=== PATIENT | male | born 1955 | race Two or more races ===

== ENCOUNTER 2023-09-15 20:52 | Inpatient (IN) | payer OTHER, BC ==
[2023-09-15 22:42] LABS: VENOUS BASE EXCESS -1.5 mmol/L (-2-2); VENOUS O2 SATURATION 15.6 % (70-80); VENOUS PCO2 47.7 mmHg (38-52); VENOUS PH 7.332 (7.310-7.410)
[2023-09-15 22:50] LABS: BASO % 0.6 % (0-2.0); EOS % 0.1 % (0-4.5); HEMATOCRIT 38.5 % (35.4-49); HEMOGLOBIN 12.1 GM/dL (11.7-16.9); INR 1.62 (0.83-1.09); LYMPH % 8.5 % (8-40); MCH 29.6 pg (25.7-33.7); MCHC 31.5 g/dl (32.0-35.9); MEAN CELL VOLUME 93.8 fl (80-96); MEAN PLT VOLUME 11.1 fl (7.5-11.1); MONO % 4.5 % (3.8-10.2); NEUT % 86.3 % (42.8-82.8); PLATELET COUNT 63 10^3/uL (134-434); PROTHROMBIN TIME (PATIENT) 18.1 SEC (9.7-13.0); RDW 17.4 % (11.9-15.9); WHITE BLOOD COUNT 16.9 K/mm3 (4.0-10.0)
[2023-09-15 22:52] LABS: ACTIVATED PTT 36.5 SECONDS (25.2-36.5)
[2023-09-15 23:11] LABS: ALBUMIN 2.9 g/dl (3.4-5.0); ANION GAP 10 mmol/L (4-13); BLOOD UREA NITROGEN 21.8 mg/dL (7-18); CALCIUM 9.1 mg/dL (8.5-10.1); CHLORIDE 99 mmol/L (98-107); CO2 27 mmol/L (21-32); GLUCOSE,RANDOM 94 mg/dL (74-106); MAGNESIUM 1.9 mg/dL (1.8-2.4); POTASSIUM 2.9 mmol/L (3.5-5.1); SODIUM 136 mmol/L (136-145)
[2023-09-15 23:13] LABS: SGOT/AST 34 U/L (15-37); SGPT/ALT 24 U/L (13-61)
[2023-09-15 23:15] LABS: BILIRUBIN,TOTAL 1.8 mg/dL (0.2-1); TOT PROT 6.1 g/dl (6.4-8.2)
[2023-09-15 23:23] LABS: LACTIC ACID 2.1 mmol/L (0.4-2.0)
[2023-09-15] MEDS ORDERED: PIPERACILLIN/TAZOB 4.5 GM 4.5 GM/100 ML BAG IVPB ONE (23:30)
[2023-09-15] MEDS ORDERED: POTASSIUM CHLORIDE ORAL LIQUID 20 MEQ/15 ML ONE (23:31)
[2023-09-15 23:32] LABS: ANISOCYTOSIS 2+; MACROCYTOSIS 0; N-TERMINAL BNP 105172.7 pg/ml (5-125); OVALOCYTE 1+; TEAR DROP CELLS 1+
[2023-09-15 23:33] LABS: ALK PHOS 101 U/L (45-117)
[2023-09-15] MEDS: POTASSIUM CHLORIDE ORAL LIQUID 20 MEQ/15 ML PO ONE (23:35)
[2023-09-15] MEDS: PIPERACILLIN/TAZOB 4.5 GM 4.5 GM in DEXTROSE 5%-WATER 100 ML IVPB ONE (23:35)
[2023-09-16] MEDS ORDERED: VANCOMYCIN 1 GRAM (PRE-DOCKED) 1,000 MG/250 ML BAG IVPB ONE (00:13)
[2023-09-16] MEDS: VANCOMYCIN 1,000 MG in DEXTROSE 5%-WATER - 250 ML IVPB ONE (00:19)
[2023-09-16] MEDS ORDERED: ACETAMINOPHEN INJECTION 100 ML IVPB ONE (00:27)
[2023-09-16] MEDS ORDERED: ASPIRIN 81 MG CHEWABLE TABLETS ONE (00:27)
[2023-09-16] MEDS: ASPIRIN 81 MG CHEWABLE TABLETS PO ONE (00:32)
[2023-09-16] MEDS: ACETAMINOPHEN 1000 MG/100 ML BAG IVPB ONE ×2 (00:33→22:31)
[2023-09-16] MEDS ORDERED: AZITHROMYCIN IVPB 500 MG/250 ML BAG IVPB ONE (01:31)
[2023-09-16] MEDS: AZITHROMYCIN IVPB 500 MG in DEXTROSE 5%-WATER - 250 ML IVPB ONE (01:32)
[2023-09-16] MEDS: HEPARIN NA (PORCINE) 5,000 UNITS/ML 1ML VIAL SQ SCH ×2 (06:01→16:09)
[2023-09-16] MEDS: INSULIN ASPART SLIDING SCALE (NOVOLOG) 1 VIAL SQ SCH ×2 (06:36→17:39)
[2023-09-16 07:12] LABS: BASO % 0.1 % (0-2.0); HEMATOCRIT 35.5 % (35.4-49); HEMOGLOBIN 11.3 GM/dL (11.7-16.9); LYMPH % 11.1 % (8-40); MCH 29.5 pg (25.7-33.7); MCHC 31.7 g/dl (32.0-35.9); MEAN CELL VOLUME 93.1 fl (80-96); MEAN PLT VOLUME 11.2 fl (7.5-11.1); MONO % 5.2 % (3.8-10.2); NEUT % 83.6 % (42.8-82.8); PLATELET COUNT 56 10^3/uL (134-434); RBC 3.82 M/mm3 (4.00-5.60); RDW 17.5 % (11.9-15.9); WHITE BLOOD COUNT 13.7 K/mm3 (4.0-10.0)
[2023-09-16 07:25] LABS: CHLORIDE 99 mmol/L (98-107); SODIUM 136 mmol/L (136-145)
[2023-09-16 07:29] LABS: ALBUMIN 2.7 g/dl (3.4-5.0); BLOOD UREA NITROGEN 24.5 mg/dL (7-18); CO2 26 mmol/L (21-32); GLUCOSE,RANDOM 95 mg/dL (74-106); MAGNESIUM 1.9 mg/dL (1.8-2.4)
[2023-09-16 07:31] LABS: PHOSPHOROUS 2.7 mg/dL (2.5-4.9); SGOT/AST 52 U/L (15-37); SGPT/ALT 35 U/L (13-61)
[2023-09-16 07:33] LABS: BILIRUBIN,TOTAL 2.1 mg/dL (0.2-1); TOT PROT 5.7 g/dl (6.4-8.2)
[2023-09-16 07:34] LABS: ALK PHOS 88 U/L (45-117)
[2023-09-16 07:48] LABS: ANION GAP 10 mmol/L (4-13); POTASSIUM 2.9 mmol/L (3.5-5.1)
[2023-09-16 07:56] LABS: LACTIC ACID 2.1 mmol/L (0.4-2.0)
[2023-09-16] MEDS ORDERED: GABAPENTIN 300 MG CAPSULE PO PRN (09:11)
[2023-09-16] MEDS: PIPERACILLIN/TAZOB 2.25 GM 2.25 GM in DEXTROSE 5%-WATER - 50 ML IVPB SCH (09:42)
[2023-09-16] MEDS: POTASSIUM CHLORIDE ORAL LIQUID 20 MEQ/15 ML PO SCH ×2 (09:42→12:06)
[2023-09-16] MEDS: ASPIRIN COATED 81 MG TABLET.EC PO SCH (09:42)
[2023-09-16] MEDS: CHOLECALCIFEROL (VIT D3) 5000 UNITS (125 MCG) CAP PO SCH (11:38)
[2023-09-16] MEDS: MUPIROCIN 2% TOPICAL OINTMENT FOR DECOLONIZATION NS SCH (11:38)
[2023-09-16] MEDS: SEVELAMER CARBONATE 800 MG TAB (FP) PO SCH ×2 (12:06→20:45)
[2023-09-16] MEDS ORDERED: SODIUM CHLORIDE 250 ML IV PRN (13:48)
[2023-09-16 15:45] VITALS: BMI 64.3
[2023-09-16] MEDS: CEFTRIAXONE 2 GM in DEXTROSE 5%-WATER 100 ML IVPB SCH ×3 (15:59→20:46)
[2023-09-16] MEDS: ALBUMIN HUMAN 25% 12.5 GM/50 ML VIAL IV SCH (17:40)
[2023-09-16 21:06] LABS: POTASSIUM 3.5 mmol/L (3.5-5.1)
[2023-09-16 21:08] LABS: CALCIUM 9.6 mg/dL (8.5-10.1)
[2023-09-16 21:09] LABS: ALBUMIN 2.8 g/dl (3.4-5.0); BLOOD UREA NITROGEN 18.6 mg/dL (7-18)
[2023-09-16 21:12] LABS: CREATININE 5.4 mg/dL (0.55-1.3)
[2023-09-16 21:14] LABS: BILIRUBIN,TOTAL 2.3 mg/dL (0.2-1); TOT PROT 6.1 g/dl (6.4-8.2)
[2023-09-16] MEDS: ATORVASTATIN CA 10 MG TABLET (FP) PO SCH (21:59)
[2023-09-16] MEDS ORDERED: CHLORHEXIDINE GLUCONATE 4% CLEANSER FOR DECOLONIZATION TP SCH ×2 (22:00)
[2023-09-16] MEDS ORDERED: MUPIROCIN 2% TOPICAL OINTMENT FOR DECOLONIZATION NS SCH (22:00)
[2023-09-16] MEDS ORDERED: ATORVASTATIN CA 10 MG TABLET (FP) PO SCH (22:00)
[2023-09-17] MEDS ORDERED: AZITHROMYCIN IVPB 500 MG/250 ML BAG IVPB SCH (10:00)
[2023-09-17 10:45] LABS: HEMATOCRIT 35.8 % (35.4-49); HEMOGLOBIN 11.7 GM/dL (11.7-16.9); MCH 30.3 pg (25.7-33.7); MCHC 32.7 g/dl (32.0-35.9); MEAN CELL VOLUME 92.5 fl (80-96); MEAN PLT VOLUME 11.5 fl (7.5-11.1); PLATELET COUNT 59 10^3/uL (134-434); RBC 3.87 M/mm3 (4.00-5.60); WHITE BLOOD COUNT 8.4 K/mm3 (4.0-10.0)
[2023-09-17 11:00] LABS: POTASSIUM 3.1 mmol/L (3.5-5.1)
[2023-09-17 11:12] LABS: BLOOD UREA NITROGEN 20.3 mg/dL (7-18)
[2023-09-17 11:13] LABS: CREATININE 5.8 mg/dL (0.55-1.3)
[2023-09-17 11:14] LABS: CALCIUM 9.9 mg/dL (8.5-10.1)
[2023-09-17 11:15] LABS: PHOSPHOROUS 2.4 mg/dL (2.5-4.9)
[2023-09-17] MEDS: LIDOCAINE 5% TOPICAL PATCH TP SCH (11:20)
[2023-09-17] MEDS: AZITHROMYCIN IVPB 500 MG/250 ML BAG IVPB SCH (11:20)
[2023-09-17] MEDS: CHOLECALCIFEROL (VIT D3) 5000 UNITS (125 MCG) CAP PO SCH (11:29)
[2023-09-17] MEDS: ASPIRIN COATED 81 MG TABLET.EC PO SCH (11:30)
[2023-09-17] MEDS: POTASSIUM CHLORIDE ORAL LIQUID 20 MEQ/15 ML PO ONE (15:20)
[2023-09-17] MEDS: NAPH,MB-DB/K PH,MBDB POWDER PACKET PO ONE (15:20)
[2023-09-17] MEDS: LIDOCAINE PATCH REMOVAL MC SCH (21:54)
[2023-09-17] MEDS: GABAPENTIN 300 MG CAPSULE PO PRN (23:21)
[2023-09-18] MEDS ORDERED: SODIUM CHLORIDE 250 ML IV PRN (10:26)
[2023-09-18 10:35] LABS: BASO % 0.9 % (0-2.0); EOS % 2.5 % (0-4.5); HEMATOCRIT 34.9 % (35.4-49); HEMOGLOBIN 11.3 GM/dL (11.7-16.9); LYMPH % 22.1 % (8-40); MCH 30.1 pg (25.7-33.7); MCHC 32.3 g/dl (32.0-35.9); MEAN PLT VOLUME 11.3 fl (7.5-11.1); MONO % 5.1 % (3.8-10.2); NEUT % 69.4 % (42.8-82.8); PLATELET COUNT 59 10^3/uL (134-434); RBC 3.75 M/mm3 (4.00-5.60); RDW 17.2 % (11.9-15.9)
[2023-09-18 10:42] LABS: CHLORIDE 100 mmol/L (98-107); HEMATOCRIT 35.3 % (35.4-49); HEMOGLOBIN 11.3 GM/dL (11.7-16.9); MCH 29.7 pg (25.7-33.7); PLATELET COUNT 66 10^3/uL (134-434); POTASSIUM 2.9 mmol/L (3.5-5.1); RBC 3.79 M/mm3 (4.00-5.60); RDW 17.3 % (11.9-15.9); SODIUM 136 mmol/L (136-145); WHITE BLOOD COUNT 6.6 K/mm3 (4.0-10.0)
[2023-09-18 10:56] LABS: PHOSPHOROUS 2.9 mg/dL (2.5-4.9)
[2023-09-18 11:02] LABS: ALBUMIN 2.6 g/dl (3.4-5.0); CALCIUM 9.4 mg/dL (8.5-10.1)
[2023-09-18 11:03] LABS: ANION GAP 9 mmol/L (4-13); BLOOD UREA NITROGEN 24.3 mg/dL (7-18); CO2 27 mmol/L (21-32); GLUCOSE,RANDOM 87 mg/dL (74-106)
[2023-09-18 11:05] LABS: CREATININE 6.4 mg/dL (0.55-1.3); SGOT/AST 21 U/L (15-37); SGPT/ALT 35 U/L (13-61)
[2023-09-18 11:06] LABS: BILIRUBIN,TOTAL 0.9 mg/dL (0.2-1)
[2023-09-18 11:08] LABS: ALK PHOS 128 U/L (45-117)
[2023-09-18] MEDS: POTASSIUM CHLORIDE ORAL LIQUID 20 MEQ/15 ML PO ONE (14:05)
[2023-09-18] MEDS: ALBUMIN HUMAN 25% 12.5 GM/50 ML VIAL IV SCH (14:35)
[2023-09-19 08:38] LABS: BASO % 1.3 % (0-2.0); EOS % 2.5 % (0-4.5); HEMOGLOBIN 10.9 GM/dL (11.7-16.9); LYMPH % 24.1 % (8-40); MCH 29.9 pg (25.7-33.7); MCHC 32.2 g/dl (32.0-35.9); MEAN CELL VOLUME 92.9 fl (80-96); MONO % 5.7 % (3.8-10.2); NEUT % 66.4 % (42.8-82.8); PLATELET COUNT 55 10^3/uL (134-434); RBC 3.66 M/mm3 (4.00-5.60); RDW 17.5 % (11.9-15.9); WHITE BLOOD COUNT 4.7 K/mm3 (4.0-10.0)
[2023-09-19 08:52] LABS: CHLORIDE 100 mmol/L (98-107); SODIUM 137 mmol/L (136-145)
[2023-09-19 08:54] LABS: CALCIUM 9.3 mg/dL (8.5-10.1)
[2023-09-19 08:55] LABS: BLOOD UREA NITROGEN 13.1 mg/dL (7-18); CO2 30 mmol/L (21-32); GLUCOSE,RANDOM 86 mg/dL (74-106)
[2023-09-19 08:57] LABS: ANION GAP 8 mmol/L (4-13); POTASSIUM 2.7 mmol/L (3.5-5.1)
[2023-09-19 08:58] LABS: CREATININE 4.7 mg/dL (0.55-1.3)
[2023-09-19] MEDS: POTASSIUM CHLORIDE TABS 20 MEQ TABLET.ER (FP) PO ONE (12:04)
[2023-09-19] MEDS: LACTOBACILLUS ACIDOPHILUS 1 TABLET PO SCH (12:19)
[2023-09-19] MEDS: ACETAMINOPHEN 500 MG TABLET (FP) PO ONE (13:48)
[2023-09-19] MEDS: NAPH,MB-DB/K PH,MBDB POWDER PACKET PO ONE (17:13)
[2023-09-20] MEDS: AZITHROMYCIN 250 MG TABLET PO SCH (11:07)
[2023-09-20 11:28] LABS: BASO % 1.2 % (0-2.0); HEMATOCRIT 34.7 % (35.4-49); HEMOGLOBIN 11.1 GM/dL (11.7-16.9); LYMPH % 29.3 % (8-40); MCH 29.6 pg (25.7-33.7); MCHC 31.8 g/dl (32.0-35.9); MEAN CELL VOLUME 92.8 fl (80-96); MEAN PLT VOLUME 10.7 fl (7.5-11.1); MONO % 8.3 % (3.8-10.2); NEUT % 58.2 % (42.8-82.8); PLATELET COUNT 56 10^3/uL (134-434); RBC 3.74 M/mm3 (4.00-5.60); RDW 17.4 % (11.9-15.9); WHITE BLOOD COUNT 4.9 K/mm3 (4.0-10.0)
[2023-09-20 11:48] LABS: CHLORIDE 99 mmol/L (98-107); SODIUM 135 mmol/L (136-145)
[2023-09-20 11:51] LABS: POTASSIUM 2.9 mmol/L (3.5-5.1)
[2023-09-20 11:53] LABS: CALCIUM 9.3 mg/dL (8.5-10.1)
[2023-09-20 11:54] LABS: ALBUMIN 2.7 g/dl (3.4-5.0); ANION GAP 8 mmol/L (4-13); BLOOD UREA NITROGEN 18.1 mg/dL (7-18); CO2 29 mmol/L (21-32); GLUCOSE,RANDOM 93 mg/dL (74-106); MAGNESIUM 1.9 mg/dL (1.8-2.4)
[2023-09-20 11:57] LABS: CREATININE 5.8 mg/dL (0.55-1.3); SGOT/AST 21 U/L (15-37); SGPT/ALT 30 U/L (13-61)
[2023-09-20 11:58] LABS: TOT PROT 5.6 g/dl (6.4-8.2)
[2023-09-20 11:59] LABS: BILIRUBIN,TOTAL 0.6 mg/dL (0.2-1)
[2023-09-20 12:00] LABS: ALK PHOS 149 U/L (45-117)
[2023-09-20] MEDS ORDERED: KCL 10 MEQ IVPB 10 MEQ/100 ML INFUS.BAG IVPB SCH (13:00)
[2023-09-20] MEDS ORDERED: SODIUM CHLORIDE 250 ML IV PRN (13:35)
[2023-09-20] MEDS: POTASSIUM CHLORIDE ORAL LIQUID 20 MEQ/15 ML PO ONE (14:12)
[2023-09-20] MEDS: KCL 10 MEQ IVPB 10 MEQ/100 ML INFUS.BAG IVPB SCH (14:12)
[2023-09-20 14:55] VITALS: BP 124/71; PULSE 90; RESP 19; TEMP 97.8
[2023-09-21] MEDS ORDERED: ALBUMIN HUMAN 25% 12.5 GM/50 ML VIAL IVPB SCH (13:45)
== END 2023-09-20 19:27 | disposition home or self-care (01) | DRG 871 ==
LOC: JER 20:52 → JERBED 09-16 00:41 → JICU 09-16 02:06 → J7W 09-16 12:36
PROVIDERS: ADMIT Internal Medicine Pulmonary Disease; ATTEND Nurse Practitioner Family
PROC: 5A1D70Z Performance of Urinary Filtration, Intermittent, Less than 6 Hours Per Day (ICD-10-PCS; principal; 2023-09-16)
PROC: 5A1D70Z Performance of Urinary Filtration, Intermittent, Less than 6 Hours Per Day (ICD-10-PCS; 2023-09-18)
DX: A41.89 Other specified sepsis (principal); G93.41 Metabolic encephalopathy; J18.9 Pneumonia, unspecified organism; N18.6 End stage renal disease; J96.21 Acute and chronic respiratory failure with hypoxia; I24.89 Other forms of acute ischemic heart disease; C64.9 Malignant neoplasm of unspecified kidney, except renal pelvis; E87.20 Acidosis, unspecified; I13.2 Hypertensive heart and chronic kidney disease with heart failure and with stage 5 chronic kidney disease, or end stage renal disease; I50.22 Chronic systolic (congestive) heart failure; E11.22 Type 2 diabetes mellitus with diabetic chronic kidney disease; I48.0 Paroxysmal atrial fibrillation; E78.5 Hyperlipidemia, unspecified; E87.6 Hypokalemia; D69.6 Thrombocytopenia, unspecified; I25.10 Atherosclerotic heart disease of native coronary artery without angina pectoris; E11.51 Type 2 diabetes mellitus with diabetic peripheral angiopathy without gangrene; Z89.612 Acquired absence of left leg above knee; Z89.611 Acquired absence of right leg above knee; Z95.5 Presence of coronary angioplasty implant and graft; Z99.81 Dependence on supplemental oxygen; Z99.2 Dependence on renal dialysis
CPT/HCPCS: 0241U-QW; 36415; 70450-TC; 71045-TC-FY; 80048; 80053; 82550; 82803; 82962; 83605; 83735; 83880; 84100; 84132; 84484; 85025; 85027; 85610; 85730; 86705; 86803; 86850; 86900; 86901; 87040; 87340; 93005; 93010; 93306-TC; 93970-TC; 99291; J0131; J1644; P9047